=== PATIENT | female | born 1960 | race Caucasian/White ===

== ENCOUNTER 2018-05-30 04:17 | Emergency (ER) | payer MEDICAID ==
[~2018-05-30] VITALS: Ht 157.5 cm; Wt 87.3 kg
[2018-05-30] MEDS ORDERED: NATURE'S BOUNTY1 TAB PO (04:34)
[2018-05-30] MEDS ORDERED: CALCIUM500 M1 PO (04:34)
[2018-05-30] MEDS ORDERED: PERCOCET 325 MG1 TA5 PO (04:35)
[2018-05-30] MEDS ORDERED: OXAYDO7.5 MG PO (04:36)
[2018-05-30 08:05] VITALS: BP 111/70
== END 2018-05-30 08:10 | disposition home or self-care (01) ==
LOC: ED 04:17
DX: M25.562 Pain in left knee (principal); W01.198A Fall on same level from slipping, tripping and stumbling with subsequent striking against other object, initial encounter; Y92.009 Unspecified place in unspecified non-institutional (private) residence as the place of occurrence of the external cause; Z96.641 Presence of right artificial hip joint; F17.210 Nicotine dependence, cigarettes, uncomplicated; Z79.891 Long term (current) use of opiate analgesic
CPT/HCPCS: J1885

== ENCOUNTER 2019-07-17 10:00 | Outpatient (RCR) | payer MEDICAID ==
[~2019-07-17 10:00] MED LIST: CALCIUM500 M1 PO; NATURE'S BOUNTY1 TAB PO; OXAYDO7.5 MG PO; PERCOCET 325 MG1 TA5 PO
== END 2019-07-17 10:30 | disposition home or self-care (01) ==
LOC: PT 10:00
DX: M17.12 Unilateral primary osteoarthritis, left knee (principal)